=== PATIENT | female | born 1940 | race Caucasian/White ===

== ENCOUNTER 2019-08-21 07:19 | Outpatient (CLI) | payer MEDICARE ==
[2019-08-21 08:01] LABS: Hemoglobin 13.9 g/dL (12.0-16.0); Mean Corpuscular HGB CONC 35.8 g/dL (32.0-36.0); Mean Corpuscular Hemoglobin 32.7 pg (27.0-31.0); Mean Corpuscular Volume 91.2 fL (78.0-98.0); Mean Platelet Volume 5.7 fL (7.4-10.4); Platelet Count 297 thou/uL (130-400); RBC Distribution Width 13.6 % (11.5-14.5); Red Blood Cell (RBC) Count 4.24 mill/uL (4.20-5.40); White Blood Cell (WBC) Count 5.3 thou/uL (4.8-10.8)
[2019-08-21 08:02] LABS: ALT (SGPT) 32 U/L (8-55); AST (SGOT) 23 U/L (5-34); Albumin 3.8 g/dL (3.4-4.8); Alkaline Phosphatase 70 U/L (40-110); Anion Gap 13 mmol/L (10-20); BUN (Urea Nitrogen) 10 mg/dL (9.8-20.1); Bilirubin, Total 0.7 mg/dL (0.2-1.2); Calc. Creatinine Clearance 0 mL/min (70-130); Calcium 8.6 mg/dL (7.8-10.44); Carbon Dioxide 27 mmol/L (23-31); Chloride 100 mmol/L (98-107); Estimated GFR-MDRD 67; Globulin 1.9 g/dL (2.4-3.5); Glucose 125 mg/dL (83-110); Potassium 4.4 mmol/L (3.5-5.1); Protein, Total 5.7 g/dL (6.0-8.3); Sodium 136 mmol/L (136-145)
--- NOTE | 2019-08-21 10:22 | CT ---
CT OF CHEST AND ABDOMEN AND PELVIS PERFORMED WITH CONTRAST ENHANCEMENT: HISTORY: Other lymphomas head, face, and neck. COMPARISON: A 08/18/2018 CT chest, abdomen, and pelvis. FINDINGS: The parenchymal changes which were previously described is within the right middle lobe as a hand-in- glove appearance are actually changes within the anterior segment of the right upper lobe seen on axi al image 21. These changes have become less prominent which would suggest less mucus plugging as com pared to that previous exam. The right pleural effusion persists and is felt to be minimally increas ed in size as compared to the prior exam. The left parahilar upper lobe nodular density measuring 6 mm in size seen on axial image 25 is stable. No new nodules identified. Slight ground-glass appeara nce to the lung bases is unchanged and interstitial changes are similar to the previous study. There is no significant mediastinal or hilar lymphadenopathy demonstrated. No significant axillary adenop athy. CT OF ABDOMEN PERFORMED WITH CONTRAST ENHANCEMENT: The liver, spleen, pancreas, and gallbladder regions appear unremarkable. Slight prominence to the GE junction region of the stomach is a stable finding. The right and left adrenal glands and right and left kidneys are normal in appearance. There are sma ll paraaortic and aortocaval nodes, these are stable. CT OF PELVIS PERFORMED WITH CONTRAST ENHANCEMENT: There is no evidence of adenopathy, mass, or free fluid. Review of osseous structures showed no lytic or blastic bony changes. IMPRESSION: 1. Fairly stable overall exam. Some minimal increase to the right pleural effusion. The area of tr ee-in-bud nodularity in the right upper lobe is slightly decreased as compared to the prior exam. 2. Stable appearance to a 6 mm left upper lobe parahilar nodule. 3. Small aortocaval and paraaortic nodes unchanged since the prior exam. POS: [facility]
== END 2019-08-21 07:20 | disposition home or self-care (01) ==
LOC: SCSCT 07:19
PROVIDERS: ATTEND Internal Medicine Hematology & Oncology
DX: C85.81 Other specified types of non-Hodgkin lymphoma, lymph nodes of head, face, and neck (principal); R91.1 Solitary pulmonary nodule; J90 Pleural effusion, not elsewhere classified
CPT/HCPCS: 36415; 71260; 74177; 80053; 85027

== ENCOUNTER 2020-09-01 09:25 | Outpatient (CLI) | payer MEDICARE ==
--- NOTE | 2020-09-01 13:03 | CT ---
CT of thechest, abdomen, and pelvis: 09/01/2020 COMPARISON:08/21/2019 HISTORY:Lymphoma TECHNIQUE: Serial axial CT imaging at5 mm intervals from thethoracic inlet through pubic symphysis wi th IV and oral contrast. Coronal and sagittal reformatted imaging obtained Findings:Multiple tiny hypodense thyroid nodules are noted, stable. No axillary, hilar, or mediastina l adenopathy. Extensive stable calcification in the region of the left ventricle, the mitral annulus, and the coronary arterial vasculature. Scattered atherosclerotic calcification of the aortic arch and descending thoracic aorta. There is a small right pleural effusion, slightly less conspicuous than on the prior exam. No left pl eural fluid. No significant pericardial or mediastinal fluid. There is a stable tiny right upper lobe nodule measuring 3 mm on axial image 33 and an additional sta ble 4 mm left upper lobe nodule on image 29. Anterior inferior horizontally oriented increased density is seen involving the anterior portion of the right upper lobe suggesting scar/volume loss. C urvilinear nodular density noted within the right upper lobe on the prior examination laterally has resolved. Inferior medial pleural-based right middle lobe density noted, unchanged, suggesting scar o r volume loss. There is a new vertically oriented pleural based nodule inferiorly and anteriorly within the right middle lobe, best seen on axial image 41 measuring 1 cm in AP dimension and 1.2 cm i n craniocaudal dimension. It is conceivable that this is associated with the degree of inflammatory change as there are mild adjacent reticulonodular densities. Osseous structures of the chest demonstrate no discrete worrisome lytic or blastic bone lesions. No free intraperitoneal air or fluid. The gallbladder, liver, and spleen demonstrate no acute findings. The spleen measures up to 10.6 cm i n craniocaudal dimension and 12.3 cm in AP dimension, similar when compared to the prior exam. There is questionable mild wall thickening of the stomach, particularly within the region of the fund us and upper gastric body which is similar when compared to the 08/21/2019 examination. There is stable nodularity of bilateral adrenal glands without a discrete adrenal mass lesion on eith er side. Multiple subcentimeter renal hypodensities noted bilaterally, suggesting multiple small cysts. Mild nonspecific wall thickening of the urinary bladder is noted, a stable finding. Significant stool is seen within the colon. No evidence for small or large bowel obstruction. No foca l area of bowel inflammatory change is noted. There is scattered atherosclerotic calcification of the abdominal aorta and its branches. There is a left para-aortic lymph node measuring 7 mm in AP dimension just inferior to the left renal vein, slightly more prominent than on the prior exam. On axial image 69 there is a lymph node measuring 1.8 cm in AP dimension, enlarged from a 1 cm on the prior exam. Subcentimeter aortocaval no sangeetha and retrocaval lymph nodes are noted, slightly enlarged when compared to prior imaging. There is a node along the course of the common iliac vasculature on the right on axial image 90 measu ring 1.3 cm in short axis dimension which appears new when compared to prior imaging. No inguinal adenopathy. Review of the osseous structures of the abdomen/pelvis demonstrate multilevel lower lumbar spine dege nerative change. No worrisome lytic or blastic bone lesions are noted within the abdomen/pelvis. Impression: 1. New 1.1 cm nodule within the right middle lobe. Adjacent reticulonodular densities are noted and t hus, this is a nonspecific finding which may be inflammatory or neoplastic in nature. Recommend short-term follow-up CT following treatment in approximately 3 months. 2. Interval development of mildly enlarged lymph nodes within the retroperitoneum and along the cour se of the common iliac vasculature on the right. Given the patient's history of lymphoma, this may be on the basis of early disease recurrence. 3. Stable small right pleural effusion. CODE T
== END 2020-09-01 09:26 | disposition home or self-care (01) ==
LOC: SCSCT 09:25
PROVIDERS: ATTEND Internal Medicine Hematology & Oncology
DX: C85.81 Other specified types of non-Hodgkin lymphoma, lymph nodes of head, face, and neck (principal); R91.1 Solitary pulmonary nodule; J98.4 Other disorders of lung; J90 Pleural effusion, not elsewhere classified; R59.0 Localized enlarged lymph nodes
CPT/HCPCS: 71260; 74177; 82565

== ENCOUNTER 2021-03-12 09:12 | Outpatient (CLI) | payer MEDICARE ==
[2021-03-12] MEDS ORDERED: Iopamidol-370 76% 500 ML 1 ML ONE (15:09)
== END 2021-03-12 09:13 | disposition home or self-care (01) ==
LOC: BICCT 09:12
PROVIDERS: ATTEND Internal Medicine Hematology & Oncology
DX: C85.81 Other specified types of non-Hodgkin lymphoma, lymph nodes of head, face, and neck (principal); J90 Pleural effusion, not elsewhere classified; R91.1 Solitary pulmonary nodule; J98.11 Atelectasis; R91.8 Other nonspecific abnormal finding of lung field
CPT/HCPCS: 71260; 74177; 82565; Q9967

== ENCOUNTER 2021-03-18 09:55 | Outpatient (CLI) | payer MEDICARE ==
[2021-03-18 16:44] LABS: SARS-CoV-2 PCR by NAA Not Detected (NotDetected)
== END 2021-03-18 09:56 | disposition home or self-care (01) ==
LOC: LABBT 09:55
PROVIDERS: ATTEND Internal Medicine Critical Care Medicine
DX: Z01.812 Encounter for preprocedural laboratory examination (principal); Z20.822 Contact with and (suspected) exposure to COVID-19
CPT/HCPCS: U0003; U0005; 87635

== ENCOUNTER 2021-03-23 06:31 | Day surgery (SDC) | payer MEDICARE ==
[2021-03-23 10:01] LABS: Fluid, Triglycerides Less than 11 mg/dL (Not Available); Pleural Fluid, Amylase Less than 30 U/L (Not Available); Pleural Fluid, Glucose 164 mg/dL; Pleural Fluid, LDH 86 U/L (Not Available); Pleural Fluid, Protein 1.6 g/dL
[2021-03-23 11:18] LABS: RBC Count-Automated (BF) 27055 /cu.mm; WBC/Nucleated-Auto (BF) 570 uL
[2021-03-23 11:44] LABS: BF Color Red; Body Fluid Source Thoracentesis Fluid; Clarity Cloudy/Turbid (Clear); Tube # EDTA
[2021-03-23 12:10] LABS: BF Segmented Neutrophils 16 %
[2021-03-23 12:11] LABS: Cell Count Non Hematic 54 %; Lymphocytes 30 %
== END 2021-03-23 09:15 | disposition home or self-care (01) ==
LOC: SDC 06:31
PROVIDERS: ATTEND Internal Medicine Critical Care Medicine
PROC: 0W993ZZ Drainage of Right Pleural Cavity, Percutaneous Approach (ICD-10-PCS; principal; 2021-03-23)
DX: J90 Pleural effusion, not elsewhere classified (principal); I10 Essential (primary) hypertension; E11.9 Type 2 diabetes mellitus without complications; Z79.82 Long term (current) use of aspirin; Z79.84 Long term (current) use of oral hypoglycemic drugs; Z79.899 Other long term (current) drug therapy; Z88.2 Allergy status to sulfonamides; Z79.01 Long term (current) use of anticoagulants
CPT/HCPCS: 32554; 82150; 82945; 83615; 83986; 84157; 84478; 85060; 87070; 87205; 87206; 88112; 88305; 89051; J1642

== ENCOUNTER 2021-12-23 10:41 | Day surgery (SDC) | payer MEDICARE ==
[2021-12-15 10:06] VITALS: BMI 21.6
[2021-12-23] MEDS ORDERED: PROPOFOL 20 ML ONE (12:00)
[2021-12-23] MEDS ORDERED: Lidocaine 2% PF 5 ML VIAL ONE (12:00)
[2021-12-23] MEDS ORDERED: Lidocaine 1% PF 5 ML VIAL ONE (13:07)
== END 2021-12-23 14:22 | disposition home or self-care (01) ==
LOC: SDC 10:41
PROVIDERS: ATTEND Internal Medicine Cardiovascular Disease
PROC: B24BZZ4 Ultrasonography of Heart with Aorta, Transesophageal (ICD-10-PCS; principal; 2021-12-23)
DX: I08.3 Combined rheumatic disorders of mitral, aortic and tricuspid valves (principal); I11.9 Hypertensive heart disease without heart failure; Q21.1 Atrial septal defect; I31.3 Pericardial effusion (noninflammatory); I48.0 Paroxysmal atrial fibrillation; E11.9 Type 2 diabetes mellitus without complications; I70.0 Atherosclerosis of aorta; I25.10 Atherosclerotic heart disease of native coronary artery without angina pectoris; Z79.01 Long term (current) use of anticoagulants; Z79.82 Long term (current) use of aspirin; Z79.84 Long term (current) use of oral hypoglycemic drugs; Z79.899 Other long term (current) drug therapy; Z88.2 Allergy status to sulfonamides
CPT/HCPCS: 93312; J2001; J2704

== ENCOUNTER 2022-03-11 08:35 | Outpatient (CLI) | payer MEDICARE | END 2022-03-11 08:36 | disposition home or self-care (01) | LOC: BICCT 08:35 | PROVIDERS: ATTEND Internal Medicine Hematology & Oncology | DX: C85.81 Other specified types of non-Hodgkin lymphoma, lymph nodes of head, face, and neck (principal); J90 Pleural effusion, not elsewhere classified; I51.7 Cardiomegaly; I31.3 Pericardial effusion (noninflammatory) | CPT/HCPCS: 71260; 74177; 82565 ==

== ENCOUNTER 2022-04-19 22:49 | Inpatient (IN) | payer MEDICARE ==
[2022-04-20 03:56] VITALS: BMI 23.0
[2022-04-20] MEDS ORDERED: Ondansetron ODT 4 MG TAB PO PRN ×2 (04:28→20:48)
[2022-04-20] MEDS ORDERED: Acetaminophen 650 MG Suppository PR PRN ×2 (04:28→20:48)
[2022-04-20] MEDS ORDERED: Acetaminophen 325 MG TAB PO PRN ×2 (04:28→20:48)
[2022-04-20] MEDS ORDERED: Ondansetron PF 4 MG/2 ML Vial IVP PRN ×2 (04:28→20:49)
[2022-04-20] MEDS ORDERED: Dextrose 5% in Water 1,000 ML IV PRN (04:33)
[2022-04-20] MEDS ORDERED: Dextrose 50% Abboject 50 ML SYRINGE SLOW IVP PRN ×2 (04:33→20:49)
[2022-04-20] MEDS ORDERED: HumaLOG 300 UNITS/3 ML VIAL SC PRN ×4 (04:33→20:50)
[2022-04-20 06:04] LABS: Anion Gap 14 mmol/L (10-20); BUN (Urea Nitrogen) 11 mg/dL (9.8-20.1); Calc. Creatinine Clearance 59 mL/min (70-130); Calcium 7.9 mg/dL (7.8-10.44); Carbon Dioxide 23 mmol/L (23-31); Chloride 91 mmol/L (98-107); Glucose 126 mg/dL (83-110); Potassium 3.7 mmol/L (3.5-5.1); Sodium 124 mmol/L (136-145)
[2022-04-20] MEDS ORDERED: hydrALAZINE 20 MG/ML VIAL SLOW IVP PRN ×2 (06:06→20:51)
[2022-04-20 06:14] LABS: Hemoglobin 8.4 g/dL (12.0-16.0); Mean Corpuscular HGB CONC 33.1 g/dL (32.0-36.0); Mean Corpuscular Hemoglobin 26.8 pg (27.0-31.0); Mean Corpuscular Volume 80.9 fL (78.0-98.0); Mean Platelet Volume 10.2 fL (7.4-10.4); Platelet Count 147 thou/uL (130-400); RBC Distribution Width 18.1 % (11.5-14.5); Red Blood Cell (RBC) Count 3.13 mill/uL (4.20-5.40); White Blood Cell (WBC) Count 8.4 thou/uL (4.8-10.8)
[2022-04-20 06:18] LABS: Band 2 % (5-11); Lymphocytes 12 % (21-51); MDiff Complete? YES; Metamyelocyte 1 % (0-0); Monocytes 20 % (0-10); Neutrophil 65 % (42-75)
[2022-04-20 07:30] LABS: Iron 27 ug/dL (50-170); Iron Binding Capacity, Total 276 mcg/dL (265-497)
[2022-04-20] MEDS ORDERED: Enoxaparin Sodium 40 MG/0.4 ML SYRINGE SC SCH (09:00)
[2022-04-20] MEDS ORDERED: Furosemide 40 MG/4 ML VIAL SLOW IVP SCH (09:00)
[2022-04-20 14:34] LABS: INR-International Normal Ratio 1.1; PTT 33.9 sec (22.9-36.1); Prothrombin Time 14.2 sec (12.0-14.7)
[2022-04-20 14:38] LABS: Anisocytosis SLIGHT = 6-15 cells (100X) (0-5/hpf); Band 3 % (5-11); Hemoglobin 9.4 g/dL (12.0-16.0); Lymphocytes 7 % (21-51); MDiff Complete? YES; Mean Corpuscular HGB CONC 33.6 g/dL (32.0-36.0); Mean Corpuscular Hemoglobin 26.9 pg (27.0-31.0); Mean Corpuscular Volume 80.2 fL (78.0-98.0); Mean Platelet Volume 10.4 fL (7.4-10.4); Monocytes 23 % (0-10); Neutrophil 57 % (42-75); Platelet Count 173 thou/uL (130-400); Platelet Morphology Comment Appears Adequate; Polychromasia SLIGHT = 2-3 cells (100X) (0-2/hpf); RBC Distribution Width 18.5 % (11.5-14.5); Reactive Lymphocytes 9 % (0-10); Schistocytes SLIGHT = 2-5 cells (100X) (0-1/hpf); White Blood Cell (WBC) Count 10.5 thou/uL (4.8-10.8)
[2022-04-20] MEDS ORDERED: Atorvastatin Calcium 20 MG TAB PO SCH (21:00)
[2022-04-20] MEDS ORDERED: glyBURIDE 2.5 MG TAB PO SCH (21:00)
[2022-04-20] MEDS ORDERED: Flecainide 50 MG TAB PO SCH (21:00)
[2022-04-20] MEDS: Flecainide 50 MG TAB PO SCH (21:06)
[2022-04-20] MEDS: Atorvastatin Calcium 20 MG TAB PO SCH (21:06)
[2022-04-20] MEDS: glyBURIDE 2.5 MG TAB PO SCH (21:06)
[2022-04-21 04:34] LABS: ALT (SGPT) 16 U/L (8-55); AST (SGOT) 18 U/L (5-34); Alkaline Phosphatase 58 U/L (40-110); Anion Gap 10 mmol/L (10-20); BUN (Urea Nitrogen) 11 mg/dL (9.8-20.1); Bilirubin, Total 0.8 mg/dL (0.2-1.2); Calc. Creatinine Clearance 65 mL/min (70-130); Calcium 7.4 mg/dL (7.8-10.44); Carbon Dioxide 27 mmol/L (23-31); Chloride 91 mmol/L (98-107); Globulin 1.4 g/dL (2.4-3.5); Glucose 104 mg/dL (83-110); Magnesium 1.7 mg/dL (1.6-2.6); Potassium 3.5 mmol/L (3.5-5.1); Protein, Total 4.4 g/dL (5.8-8.1); Sodium 124 mmol/L (136-145)
[2022-04-21 04:47] LABS: Hemoglobin 8.6 g/dL (12.0-16.0); Mean Corpuscular HGB CONC 33.8 g/dL (32.0-36.0); Mean Corpuscular Hemoglobin 26.7 pg (27.0-31.0); Mean Corpuscular Volume 79.1 fL (78.0-98.0); Mean Platelet Volume 10.4 fL (7.4-10.4); Platelet Count 167 thou/uL (130-400); RBC Distribution Width 18.4 % (11.5-14.5); Red Blood Cell (RBC) Count 3.21 mill/uL (4.20-5.40); White Blood Cell (WBC) Count 13.5 thou/uL (4.8-10.8)
[2022-04-21 05:03] LABS: Band 2 % (5-11); Eosinophils 1 % (0-10); Lymphocytes 4 % (21-51); MDiff Complete? YES; Monocytes 28 % (0-10); Neutrophil 63 % (42-75); Reactive Lymphocytes 2 % (0-10)
[2022-04-21] MEDS: Enoxaparin Sodium 40 MG/0.4 ML SYRINGE SC SCH (07:16)
[2022-04-21] MEDS: Aspirin 81 mg Enteric Coated Tablet PO SCH (07:16)
[2022-04-21] MEDS ORDERED: Sodium Bicarbonate 2.5 MEQ/5 ML VIAL ONE (08:41)
[2022-04-21] MEDS ORDERED: Lidocaine 1% PF 5 ML VIAL ONE (08:41)
[2022-04-21] MEDS ORDERED: Aspirin 81 mg Enteric Coated Tablet PO SCH (09:00)
[2022-04-21] MEDS ORDERED: Lisinopril 20 MG TAB PO SCH (09:00)
[2022-04-21] MEDS ORDERED: Lisinopril 5 MG TAB PO SCH ×2 (09:00)
[2022-04-21] MEDS ORDERED: Labetalol HCl 100 MG TAB PO SCH ×2 (09:00)
[2022-04-21] MEDS ORDERED: Non-Formulary Item 1 EACH (Labetalol Hcl [Labetalol Hcl] 200 MG Tablet) PO SCH (09:00)
[2022-04-21] MEDS: Furosemide 40 MG/4 ML VIAL SLOW IVP SCH (09:38)
[2022-04-21] MEDS: Flecainide 50 MG TAB PO SCH ×2 (09:38→20:27)
[2022-04-21 10:21] LABS: Pleural Fluid, Protein 1.7 g/dL
[2022-04-21 11:05] LABS: BF Color Yellow; BF RBC Count - Manual 1875 /cu.mm; BF WBC/Nonhematics Ct.-Manual 137 /cu.mm; Body Fluid Source Thoracentesis Fluid; Clarity Hazy (Clear); Tube # EDTA
[2022-04-21 11:11] LABS: BF Segmented Neutrophils 22 %; Cell Count Non Hematic 16 %; Lymphocytes 62 %
[2022-04-21] MEDS: Atorvastatin Calcium 20 MG TAB PO SCH (20:26)
[2022-04-21] MEDS: glyBURIDE 2.5 MG TAB PO SCH (20:26)
[2022-04-22 05:24] LABS: Band 5 % (5-11); Hemoglobin 8.5 g/dL (12.0-16.0); Hypochromia SLIGHT = 6-15 cells (100X) (0-5/hpf); Lymphocytes 9 % (21-51); MDiff Complete? YES; Mean Corpuscular HGB CONC 33.6 g/dL (32.0-36.0); Mean Corpuscular Volume 80.3 fL (78.0-98.0); Mean Platelet Volume 10.4 fL (7.4-10.4); Monocytes 26 % (0-10); Neutrophil 55 % (42-75); Platelet Count 167 thou/uL (130-400); Platelet Morphology Comment Appears Adequate; RBC Distribution Width 18.4 % (11.5-14.5); Reactive Lymphocytes 5 % (0-10); Red Blood Cell (RBC) Count 3.16 mill/uL (4.20-5.40); White Blood Cell (WBC) Count 13.6 thou/uL (4.8-10.8)
[2022-04-22 05:28] LABS: ALT (SGPT) 15 U/L (8-55); AST (SGOT) 16 U/L (5-34); Alkaline Phosphatase 61 U/L (40-110); Anion Gap 10 mmol/L (10-20); BUN (Urea Nitrogen) 8 mg/dL (9.8-20.1); Bilirubin, Total 0.8 mg/dL (0.2-1.2); Calc. Creatinine Clearance 60 mL/min (70-130); Calcium 7.8 mg/dL (7.8-10.44); Carbon Dioxide 28 mmol/L (23-31); Chloride 90 mmol/L (98-107); Globulin 1.4 g/dL (2.4-3.5); Glucose 77 mg/dL (83-110); Magnesium 1.6 mg/dL (1.6-2.6); Potassium 3.2 mmol/L (3.5-5.1); Protein, Total 4.4 g/dL (5.8-8.1); Sodium 125 mmol/L (136-145)
[2022-04-22] MEDS: Flecainide 50 MG TAB PO SCH ×2 (08:43→21:58)
[2022-04-22] MEDS: Aspirin 81 mg Enteric Coated Tablet PO SCH (08:43)
[2022-04-22] MEDS: Enoxaparin Sodium 40 MG/0.4 ML SYRINGE SC SCH (08:44)
[2022-04-22] MEDS: Potassium Chloride 20 MEQ TAB PO SCH ×2 (08:44→16:54)
[2022-04-22] MEDS ORDERED: Apixaban 2.5 MG TAB PO SCH (09:00)
[2022-04-22] MEDS: glyBURIDE 2.5 MG TAB PO SCH (21:57)
[2022-04-22] MEDS: Atorvastatin Calcium 20 MG TAB PO SCH (21:58)
[2022-04-22] MEDS: Apixaban 5 MG TAB PO SCH (21:58)
[2022-04-22] MEDS: Sodium Chloride 1 GM TAB PO SCH (21:59)
[2022-04-23 05:28] LABS: Hemoglobin 8.8 g/dL (12.0-16.0); Lymphocytes 8 % (21-51); MDiff Complete? YES; Mean Corpuscular HGB CONC 33.3 g/dL (32.0-36.0); Mean Corpuscular Hemoglobin 27.1 pg (27.0-31.0); Mean Corpuscular Volume 81.4 fL (78.0-98.0); Mean Platelet Volume 10.1 fL (7.4-10.4); Monocytes 24 % (0-10); Neutrophil 68 % (42-75); Platelet Count 178 thou/uL (130-400); Platelet Morphology Comment Appears Adequate; RBC Distribution Width 18.9 % (11.5-14.5); RBC Morphology Normal; Red Blood Cell (RBC) Count 3.25 mill/uL (4.20-5.40); White Blood Cell (WBC) Count 13.3 thou/uL (4.8-10.8)
[2022-04-23 05:30] LABS: Anion Gap 12 mmol/L (10-20); BUN (Urea Nitrogen) 8 mg/dL (9.8-20.1); Calc. Creatinine Clearance 63 mL/min (70-130); Calcium 8.1 mg/dL (7.8-10.44); Carbon Dioxide 24 mmol/L (23-31); Chloride 95 mmol/L (98-107); Glucose 64 mg/dL (83-110); Magnesium 1.7 mg/dL (1.6-2.6); Potassium 4.4 mmol/L (3.5-5.1); Sodium 127 mmol/L (136-145)
[2022-04-23] MEDS: Apixaban 5 MG TAB PO SCH (09:56)
[2022-04-23] MEDS: Furosemide 40 MG/4 ML VIAL SLOW IVP SCH (09:56)
[2022-04-23] MEDS: Flecainide 50 MG TAB PO SCH (09:56)
[2022-04-23] MEDS: Aspirin 81 mg Enteric Coated Tablet PO SCH (09:56)
[2022-04-23] MEDS: Sodium Chloride 1 GM TAB PO SCH (09:56)
[2022-04-23 13:42] VITALS: BP 132/63; TEMP 97.6
== END 2022-04-23 14:48 | disposition home or self-care (01) | DRG 314 ==
LOC: 2NO 04-20 03:43 → UNDODISIN 04-20 11:50
PROVIDERS: ADMIT Internal Medicine; ATTEND Internal Medicine
PROC: 0W993ZZ Drainage of Right Pleural Cavity, Percutaneous Approach (ICD-10-PCS; principal; 2022-04-21)
DX: I31.3 Pericardial effusion (noninflammatory) (principal); I50.33 Acute on chronic diastolic (congestive) heart failure; E87.1 Hypo-osmolality and hyponatremia; J90 Pleural effusion, not elsewhere classified; S22.39XA Fracture of one rib, unspecified side, initial encounter for closed fracture; C82.20 Follicular lymphoma grade III, unspecified, unspecified site; R18.8 Other ascites; Z20.822 Contact with and (suspected) exposure to COVID-19; Z23 Encounter for immunization; W19.XXXA Unspecified fall, initial encounter; I48.0 Paroxysmal atrial fibrillation; I95.1 Orthostatic hypotension; D64.9 Anemia, unspecified; I05.0 Rheumatic mitral stenosis; Z79.01 Long term (current) use of anticoagulants; Z88.0 Allergy status to penicillin; Z88.2 Allergy status to sulfonamides; Z79.84 Long term (current) use of oral hypoglycemic drugs; Z79.899 Other long term (current) drug therapy; Z90.710 Acquired absence of both cervix and uterus
CPT/HCPCS: 32555; 36415; 36416; 71045; 80048; 80053; 82533; 82728; 82945; 83540; 83550; 83615; 83735; 83880; 83930; 83935; 84157; 84443; 84478; 85025; 85060; 85610; 85730; 87070; 87116; 87205; 87206; 88112; 88305; 88341; 88342; 89051; 93306; J0360; J1650; J1940; U0003; U0005

== ENCOUNTER 2022-10-19 10:08 | Outpatient (CLI) | payer MEDICARE ==
[2022-10-19 12:07] LABS: Hemoglobin 11.6 g/dL (12.0-15.5); Mean Corpuscular HGB CONC 33.4 g/dL (32.0-36.0); Mean Corpuscular Hemoglobin 26.7 pg (27.0-33.0); Platelet Count 186 10x3/uL (150-450); RBC Distribution Width 27.4 % (11.5-14.5); Red Blood Cell (RBC) Count 4.34 10x6/uL (3.90-5.03); White Blood Cell (WBC) Count 6.5 10x3/uL (3.5-10.5)
[2022-10-19 12:16] LABS: PTT 24.8 sec (22.0-33.0); Prothrombin Time 10.6 sec (9.5-12.1)
[2022-10-19 12:20] LABS: ALT (SGPT) 30 U/L (8-55); AST (SGOT) 27 U/L (5-34); Albumin 3.8 g/dL (3.4-4.8); Alkaline Phosphatase 84 U/L (40-110); Anion Gap 15 mmol/L (10-20); BUN (Urea Nitrogen) 13 mg/dL (9.8-20.1); Bilirubin, Total 0.6 mg/dL (0.2-1.2); Calc. Creatinine Clearance 0 mL/min (70-130); Calcium 8.6 mg/dL (7.8-10.44); Carbon Dioxide 29 mmol/L (23-31); Chloride 95 mmol/L (98-107); Estimated GFR 68; Globulin 1.4 g/dL (2.4-3.5); Glucose 353 mg/dL (83-110); Potassium 3.7 mmol/L (3.5-5.1); Protein, Total 5.2 g/dL (5.8-8.1); Sodium 135 mmol/L (136-145)
[2022-10-19 12:36] LABS: Bilirubin Neg (Negative); Blood, Urine Negative (Negative); Glucose, Urine (Dipstick) 250 mg/dL (Negative); Ketone, Urine Negative (Negative); Leukocyte Negative (Negative); Nitrite Negative (Negative); Protein, Urine (Dipstick) Negative (Neg-Trace); Specific Gravity, Urine 1.005 (1.005-1.030); Urobilinogen Normal mg/dL (Less than 2)
[2022-10-19 12:44] LABS: Clarity Clear (Clear)
== END 2022-10-19 10:09 | disposition home or self-care (01) ==
LOC: LABBT 10:08
PROVIDERS: ATTEND Internal Medicine Cardiovascular Disease
DX: Z01.812 Encounter for preprocedural laboratory examination (principal); I48.0 Paroxysmal atrial fibrillation; K92.1 Melena; Z79.01 Long term (current) use of anticoagulants
CPT/HCPCS: 80053; 81003; 85027; 85610; 85730; 86850; 86900; 86901; 93005; 93010

== ENCOUNTER 2022-10-19 11:00 | Inpatient (IN) | payer MEDICARE ==
[2022-10-19 12:07] LABS: Hemoglobin 11.6 g/dL (12.0-15.5); Mean Corpuscular HGB CONC 33.4 g/dL (32.0-36.0); Mean Corpuscular Hemoglobin 26.7 pg (27.0-33.0); Platelet Count 186 10x3/uL (150-450); RBC Distribution Width 27.4 % (11.5-14.5); Red Blood Cell (RBC) Count 4.34 10x6/uL (3.90-5.03); White Blood Cell (WBC) Count 6.5 10x3/uL (3.5-10.5)
[2022-10-19 12:16] LABS: PTT 24.8 sec (22.0-33.0); Prothrombin Time 10.6 sec (9.5-12.1)
[2022-10-19 12:20] LABS: ALT (SGPT) 30 U/L (8-55); AST (SGOT) 27 U/L (5-34); Albumin 3.8 g/dL (3.4-4.8); Alkaline Phosphatase 84 U/L (40-110); Anion Gap 15 mmol/L (10-20); BUN (Urea Nitrogen) 13 mg/dL (9.8-20.1); Bilirubin, Total 0.6 mg/dL (0.2-1.2); Calc. Creatinine Clearance 0 mL/min (70-130); Calcium 8.6 mg/dL (7.8-10.44); Carbon Dioxide 29 mmol/L (23-31); Chloride 95 mmol/L (98-107); Estimated GFR 68; Globulin 1.4 g/dL (2.4-3.5); Glucose 353 mg/dL (83-110); Potassium 3.7 mmol/L (3.5-5.1); Protein, Total 5.2 g/dL (5.8-8.1); Sodium 135 mmol/L (136-145)
[2022-10-19 12:36] LABS: Bilirubin Neg (Negative); Blood, Urine Negative (Negative); Glucose, Urine (Dipstick) 250 mg/dL (Negative); Ketone, Urine Negative (Negative); Leukocyte Negative (Negative); Nitrite Negative (Negative); Protein, Urine (Dipstick) Negative (Neg-Trace); Specific Gravity, Urine 1.005 (1.005-1.030); Urobilinogen Normal mg/dL (Less than 2)
[2022-10-19 12:44] LABS: Clarity Clear (Clear)
[2022-10-25 09:08] VITALS: BMI 21.6
[2022-10-26] MEDS ORDERED: Heparin 10,000 UNITS/ 10 ML VIAL ONE (09:56)
[2022-10-26] MEDS ORDERED: Protamine Sulfate 50 MG/5 ML VIAL ONE (09:56)
[2022-10-26] MEDS ORDERED: Clindamycin/D5W 900 mg/50 ml Premix Bag ONE (09:56)
[2022-10-26] MEDS ORDERED: Fentanyl 250 MCG/5 ML VIAL ONE (11:22)
[2022-10-26] MEDS ORDERED: Phenylephrine 10 MG/ML VIAL ONE (11:26)
[2022-10-26] MEDS ORDERED: PROPOFOL 200 MG/20 ML VIAL ONE (11:26)
[2022-10-26] MEDS ORDERED: Dexamethasone 20 MG/5 ML VIAL ONE (11:26)
[2022-10-26] MEDS ORDERED: Ondansetron PF 4 MG/2 ML Vial ONE (11:26)
[2022-10-26] MEDS ORDERED: Rocuronium Bromide 10 MG/ML (10ML VIAL) ONE (11:26)
[2022-10-26] MEDS ORDERED: ePHEDrine 50 MG/ML VIAL ONE (11:26)
[2022-10-26] MEDS ORDERED: SUGAMMADEX SODIUM 200 MG/2 ML VIAL ONE (13:36)
[2022-10-26] MEDS ORDERED: Iopamidol 370 76% 100 ML VIAL ONE (15:51)
== END 2022-10-26 17:37 | disposition home or self-care (01) | DRG 310 ==
LOC: SURG A 10-26 07:54 → EDSTATUS 10-26 11:00
PROVIDERS: ADMIT Internal Medicine Cardiovascular Disease; ATTEND Internal Medicine Cardiovascular Disease
PROC: B24BZZ4 Ultrasonography of Heart with Aorta, Transesophageal (ICD-10-PCS; principal; 2022-10-26)
DX: I48.0 Paroxysmal atrial fibrillation (principal); Z53.8 Procedure and treatment not carried out for other reasons; Z20.822 Contact with and (suspected) exposure to COVID-19; I25.10 Atherosclerotic heart disease of native coronary artery without angina pectoris; I10 Essential (primary) hypertension; E11.9 Type 2 diabetes mellitus without complications; Z88.0 Allergy status to penicillin; Z88.2 Allergy status to sulfonamides; Z79.84 Long term (current) use of oral hypoglycemic drugs; Z79.82 Long term (current) use of aspirin; Z79.899 Other long term (current) drug therapy
CPT/HCPCS: 33340; 80053; 81003; 85027; 85347; 85610; 85730; 86850; 86900; 86901; 93306; 93312; C1759; C1760; C1769; C1894; J1100; J1644; J2370; J2405; J2704; J2720; J3010; J3490; Q9967

== ENCOUNTER 2023-01-12 09:28 | Outpatient (CLI) | payer MEDICARE | END 2023-01-12 09:29 | disposition home or self-care (01) | LOC: LABBT 09:28 | PROVIDERS: ATTEND Internal Medicine Cardiovascular Disease | DX: Z01.818 Encounter for other preprocedural examination (principal); I48.91 Unspecified atrial fibrillation; I25.10 Atherosclerotic heart disease of native coronary artery without angina pectoris; I10 Essential (primary) hypertension; E11.9 Type 2 diabetes mellitus without complications; Z79.02 Long term (current) use of antithrombotics/antiplatelets; Z79.82 Long term (current) use of aspirin; Z79.84 Long term (current) use of oral hypoglycemic drugs; Z79.899 Other long term (current) drug therapy | CPT/HCPCS: 80053; 81003; 85027; 85610; 85730; 86147; 86850; 86900; 86901; 93005; 93010 ==

== ENCOUNTER 2023-01-18 05:37 | Day surgery (SDC) | payer MEDICARE ==
[2023-01-12 11:09] LABS: Bilirubin Neg (Negative); Blood, Urine Negative (Negative); Clarity Clear (Clear); Glucose, Urine (Dipstick) Normal (Negative); Ketone, Urine Negative (Negative); Leukocyte Negative (Negative); Nitrite Negative (Negative); Protein, Urine (Dipstick) Negative (Neg-Trace); Urobilinogen Normal mg/dL (Less than 2)
[2023-01-12 11:14] LABS: Hemoglobin 12.7 g/dL (12.0-15.5); Mean Corpuscular HGB CONC 34.9 g/dL (32.0-36.0); Mean Corpuscular Hemoglobin 30.5 pg (27.0-33.0); Mean Corpuscular Volume 87.3 fl (81.6-98.3); Platelet Count 94 10x3/uL (150-450); Red Blood Cell (RBC) Count 4.17 10x6/uL (3.90-5.03); White Blood Cell (WBC) Count 6.9 10x3/uL (3.5-10.5)
[2023-01-12 11:32] LABS: INR-International Normal Ratio 0.9; PTT 25.6 sec (22.0-33.0); Prothrombin Time 10.3 sec (9.5-12.1)
[2023-01-12 11:41] LABS: ALT (SGPT) 25 U/L (8-55); AST (SGOT) 25 U/L (5-34); Albumin 3.7 g/dL (3.4-4.8); Alkaline Phosphatase 78 U/L (40-110); Anion Gap 12 mmol/L (10-20); BUN (Urea Nitrogen) 11 mg/dL (9.8-20.1); Bilirubin, Total 0.6 mg/dL (0.2-1.2); Calc. Creatinine Clearance 0 mL/min (70-130); Calcium 8.4 mg/dL (7.8-10.44); Carbon Dioxide 30 mmol/L (23-31); Chloride 96 mmol/L (98-107); Estimated GFR 77; Globulin 1.4 g/dL (2.4-3.5); Glucose 211 mg/dL (83-110); Potassium 3.9 mmol/L (3.5-5.1); Protein, Total 5.1 g/dL (5.8-8.1); Sodium 134 mmol/L (136-145)
[2023-01-15 15:53] LABS: Cardiolipin IgA Ab 0.6 APL-U/mL (<14 Negative); Cardiolipin IgG Ab 0.6 GPL-U/mL (<10 Negative); Cardiolipin IgM Ab Less than 0.9 MPL-U/mL (<10 Negative); EliA APS New Method **** NEW METHOD ****
[2023-01-16 10:39] VITALS: BMI 22.3
[2023-01-18] MEDS ORDERED: Vancomycin 1 GM VIAL ONE (06:34)
[2023-01-18] MEDS ORDERED: Midazolam HCl 2 mg/2 ml Vial ONE (06:35)
[2023-01-18] MEDS ORDERED: Propofol 1,000 MG/100 ML VIAL IV ONE (06:36)
[2023-01-18] MEDS ORDERED: SUGAMMADEX SODIUM 200 MG/2 ML VIAL ONE (06:36)
[2023-01-18] MEDS ORDERED: fentaNYL PF 100 MCG/2 ML SYRINGE ONE (06:36)
[2023-01-18] MEDS ORDERED: Norepinephrine 4 MG/4 ML VIAL ONE (06:36)
[2023-01-18] MEDS ORDERED: Sodium Chloride 0.9% 100 ML ONE (06:36)
[2023-01-18] MEDS ORDERED: Protamine Sulfate 50 MG/5 ML VIAL ONE (06:52)
[2023-01-18] MEDS ORDERED: Heparin 10,000 UNITS/ 10 ML VIAL ONE (06:52)
[2023-01-18] MEDS ORDERED: Lidocaine 1% (PF) 30 ML VIAL ONE (07:40)
[2023-01-18] MEDS ORDERED: Ondansetron PF 4 MG/2 ML Vial ONE (08:25)
== END 2023-01-18 15:59 | disposition home or self-care (01) ==
LOC: SDC 05:37
PROVIDERS: ATTEND Internal Medicine Cardiovascular Disease
PROC: 02L73DK Occlusion of Left Atrial Appendage with Intraluminal Device, Percutaneous Approach (ICD-10-PCS; principal; 2023-01-18)
DX: I48.91 Unspecified atrial fibrillation (principal); I25.10 Atherosclerotic heart disease of native coronary artery without angina pectoris; E11.9 Type 2 diabetes mellitus without complications; I10 Essential (primary) hypertension; Z86.73 Personal history of transient ischemic attack (TIA), and cerebral infarction without residual deficits; Z79.02 Long term (current) use of antithrombotics/antiplatelets; Z79.82 Long term (current) use of aspirin; Z79.84 Long term (current) use of oral hypoglycemic drugs; Z79.899 Other long term (current) drug therapy; Z88.0 Allergy status to penicillin; Z88.2 Allergy status to sulfonamides
CPT/HCPCS: 33340; 80053; 81003; 85027; 85347; 85610; 85730; 86147; 86850; 86900; 86901; 93306; C1759; C1760; C1894 ×3; J1644; J2001; J2250; J2704; J2720; J3370; J3490

== ENCOUNTER 2023-06-08 14:48 | Inpatient (IN) | payer MEDICARE ==
[2023-06-08 15:04] VITALS: BMI 21.9
[2023-06-08] MEDS ORDERED: Dextrose 50% Abboject 50 ML SYRINGE SLOW IVP PRN (16:09)
[2023-06-08] MEDS ORDERED: Dextrose 5% in Water 1,000 ML IV PRN (16:09)
[2023-06-08] MEDS ORDERED: HumaLOG 300 UNITS/3 ML VIAL SC PRN (16:09)
[2023-06-08] MEDS ORDERED: Glucagon 1 MG/ML KIT IM PRN (16:09)
[2023-06-08 16:39] LABS: Troponin I Less than 0.010 ng/mL (< 0.028)
[2023-06-08] MEDS: Flecainide 50 MG TAB PO SCH (20:26)
[2023-06-08] MEDS: Atorvastatin Calcium 20 MG TAB PO SCH (20:26)
[2023-06-09 04:48] LABS: Hemoglobin 12.8 g/dL (12.0-16.0); Manual Diff?? YES; Mean Corpuscular HGB CONC 35.6 g/dL (32.0-36.0); Mean Corpuscular Hemoglobin 31.2 pg (27.0-31.0); Mean Corpuscular Volume 87.8 fl (78.0-98.0); Mean Platelet Volume 11.7 fL (7.4-10.4); RBC Distribution Width 16.2 % (11.5-14.5); White Blood Cell (WBC) Count 8.4 10x3/uL (4.8-10.8)
[2023-06-09 05:13] LABS: Anion Gap 13 mmol/L (10-20); BUN (Urea Nitrogen) 10 mg/dL (9.8-20.1); Calc. Creatinine Clearance 51 mL/min (70-130); Calcium 8.4 mg/dL (7.8-10.44); Carbon Dioxide 28 mmol/L (23-31); Chloride 98 mmol/L (98-107); Estimated GFR 79; Glucose 142 mg/dL (83-110); Potassium 3.6 mmol/L (3.5-5.1); Sodium 135 mmol/L (136-145)
[2023-06-09 05:31] LABS: Platelet Count 77 10x3/uL (130-400)
[2023-06-09 05:32] LABS: Delete Auto Diff?? YES
[2023-06-09 05:44] LABS: Magnesium 1.7 mg/dL (1.6-2.6)
[2023-06-09 05:53] LABS: Anisocytosis SLIGHT = 6-15 cells HPF (0-5); Burr Cells SLIGHT = 2-5 cells HPF (0-1); CellaVision Operator ID LAB.JMM; Lymphocytes 15 % (21-51); Monocytes 19 % (0-10); Neutrophil 64 % (42-75); Platelet Adequacy Comment Platelets Decreased; Reactive Lymphocytes 2 % (0-10); Total Cell Count 99
[2023-06-09 08:02] LABS: Troponin I Less than 0.010 ng/mL (< 0.028)
[2023-06-09] MEDS: Aspirin 81 mg Enteric Coated Tablet PO SCH (08:31)
[2023-06-09] MEDS: Clopidogrel Bisulfate 75 MG TAB PO SCH (08:31)
[2023-06-09] MEDS: Furosemide 40 MG TAB PO SCH (08:31)
[2023-06-09] MEDS: Flecainide 50 MG TAB PO SCH ×2 (08:38→21:40)
[2023-06-09] MEDS ORDERED: Regadenoson 0.4 MG/5 ML SYRINGE ONE (14:59)
[2023-06-09] MEDS: Atorvastatin Calcium 20 MG TAB PO SCH (21:40)
[2023-06-10 04:01] LABS: Hemoglobin 12.3 g/dL (12.0-16.0); Manual Diff?? YES; Mean Corpuscular HGB CONC 36.5 g/dL (32.0-36.0); Mean Corpuscular Hemoglobin 31.9 pg (27.0-31.0); Mean Corpuscular Volume 87.3 fl (78.0-98.0); Mean Platelet Volume 10.3 fL (7.4-10.4); RBC Distribution Width 16.2 % (11.5-14.5); Red Blood Cell (RBC) Count 3.86 mill/uL (4.20-5.40); White Blood Cell (WBC) Count 8.7 10x3/uL (4.8-10.8)
[2023-06-10 04:10] LABS: Delete Auto Diff?? YES; Platelet Count 77 10x3/uL (130-400)
[2023-06-10 04:24] LABS: Anion Gap 10 mmol/L (10-20); BUN (Urea Nitrogen) 11 mg/dL (9.8-20.1); Calc. Creatinine Clearance 50 mL/min (70-130); Calcium 8.3 mg/dL (7.8-10.44); Carbon Dioxide 31 mmol/L (23-31); Chloride 95 mmol/L (98-107); Estimated GFR 77; Glucose 86 mg/dL (83-110); Potassium 3.1 mmol/L (3.5-5.1); Sodium 133 mmol/L (136-145)
[2023-06-10 04:36] LABS: Anisocytosis SLIGHT = 6-15 cells HPF (0-5); Band 1 % (5-11); CellaVision Operator ID lab.sh2; Lymphocytes 13 % (21-51); Monocytes 15 % (0-10); Neutrophil 71 % (42-75); Platelet Adequacy Comment Platelets Decreased; Poikilocytosis SLIGHT = 6-15 cells HPF (0-5); Polychromasia SLIGHT = 2-3 cells HPF (0-2); Total Cell Count 101
[2023-06-10 04:40] LABS: Thyroid Stimulating Hormone 2.5773 uIU/mL (0.35-4.94)
[2023-06-10 04:52] LABS: Free T4 (Free Thyroxine) 1.09 ng/dL (0.70-1.48)
[2023-06-10 08:07] VITALS: BP 166/77; TEMP 98.5
[2023-06-10] MEDS: Furosemide 40 MG TAB PO SCH (10:18)
[2023-06-10] MEDS: Aspirin 81 mg Enteric Coated Tablet PO SCH (10:18)
[2023-06-10] MEDS: Flecainide 50 MG TAB PO SCH (10:18)
[2023-06-10] MEDS: Clopidogrel Bisulfate 75 MG TAB PO SCH (10:18)
[2023-06-14] MEDS ORDERED: Ergocalciferol 1.25 MG(50,000 UNITS) CAP PO SCH (09:00)
== END 2023-06-10 11:36 | disposition home or self-care (01) | DRG 313 ==
LOC: 2SW 14:49 → OBSVTOIN 06-09 16:48
PROVIDERS: ADMIT Internal Medicine; ATTEND Family Medicine
DX: R07.89 Other chest pain (principal); I50.32 Chronic diastolic (congestive) heart failure; C82.20 Follicular lymphoma grade III, unspecified, unspecified site; I44.0 Atrioventricular block, first degree; E11.9 Type 2 diabetes mellitus without complications; I48.0 Paroxysmal atrial fibrillation; Z79.899 Other long term (current) drug therapy; Z79.84 Long term (current) use of oral hypoglycemic drugs; Z79.82 Long term (current) use of aspirin; Z79.02 Long term (current) use of antithrombotics/antiplatelets; Z88.0 Allergy status to penicillin; Z88.2 Allergy status to sulfonamides; Z86.73 Personal history of transient ischemic attack (TIA), and cerebral infarction without residual deficits; Z90.89 Acquired absence of other organs; Z90.710 Acquired absence of both cervix and uterus; Z98.41 Cataract extraction status, right eye; Z98.42 Cataract extraction status, left eye; I11.0 Hypertensive heart disease with heart failure; I25.10 Atherosclerotic heart disease of native coronary artery without angina pectoris
CPT/HCPCS: 36415; 36416; 78452; 80048; 83735; 84439; 84443; 84481; 84484; 85025; 93005; 93010; 93017; A9500; G0378; J2785